=== PATIENT | female | born 1985 | race Two or more races ===

== ENCOUNTER 2016-03-20 07:15 | Emergency (ER) | payer OTHER ==
[~2016-03-20] VITALS: Ht 162.6 cm; Wt 55.3 kg
[2016-03-20] MEDS ORDERED: ONDANSETRON HCL/PF 4 MG/2 ML VIAL ONE (07:36)
[2016-03-20] MEDS ORDERED: IV NS 0.9% 1,000 ML ONE (07:36)
[2016-03-20] MEDS ORDERED: MORPHINE SULFATE INJ 4 MG/ML DISP.SYRIN ONE (07:36)
[2016-03-20 07:59] LABS: BASOPHILS % (AUTO) 0.1 % (0.0-2.0); DIFF TOTAL % 100 %; EOSINOPHILS # (AUTO) 0.2 /CMM (0.0-0.7); EOSINOPHILS % (AUTO) 1.3 % (0.0-6.0); HEMATOCRIT 41 % (33-45); HEMOGLOBIN 14.1 g/dL (11.5-14.8); LYMPHOCYTES # (AUTO) 1.5 /CMM (0.8-4.8); LYMPHOCYTES % (AUTO) 9.4 % (20.0-44.0); MEAN CORPUSCULAR HEMOGLOBIN 32 PG (26.0-33.0); MEAN CORPUSCULAR HGB CONC 34 g/dl (31.0-36.0); MEAN CORPUSCULAR VOLUME 92 fL (82-100); MONOCYTES # (AUTO) 0.8 /CMM (0.1-1.30); MONOCYTES % (AUTO) 5.1 % (2.0-12.0); NEUTROPHILS # (AUTO) 13.3 /CMM (1.8-8.9); NEUTROPHILS % (AUTO) 84.1 % (43.0-81.0); PLATELET COUNT (AUTO) 215 /CMM (150-450); RED BLOOD CELL COUNT(AUTO) 4.46 MIL/uL (4.0-5.2); WHITE BLOOD COUNT (AUTO) 15.9 K/uL (4.3-11.0)
[2016-03-20] MEDS ORDERED: ONDANSETRON HCL/PF 4 MG/2 ML VIAL IVP ONE (08:00)
[2016-03-20] MEDS ORDERED: IV NS 0.9% 1,000 ML BAG IV ONE (08:00)
[2016-03-20] MEDS ORDERED: MORPHINE SULFATE INJ 2 MG/ML DISP.SYRIN IV ONE (08:00)
[2016-03-20 08:05] LABS: ADD UA MICROSCOPIC NO; KETONES,URINE NEGATIVE (NEGATIVE); LEUKOCYTE ESTERASE ,URINE NEGATIVE (NEGATIVE)
[2016-03-20 08:06] LABS: CALCIUM, SERUM 8.5 mg/dL (8.5-10.1); POTASSIUM 4.2 mmol/L (3.5-5.1)
[2016-03-20 08:10] LABS: PREGNANCY TEST URINE QUAL NEGATIVE (NEGATIVE)
[2016-03-20 08:11] LABS: ALBUMIN 3.8 g/dL (3.4-5.0); BILIRUBIN,DIRECT 0.1 mg/dL (0.0-0.2); BILIRUBIN,TOTAL 0.5 mg/dL (0.2-1.0); INDIRECT BILIRUBIN 0.4 mg/dL (0.0-1.1); TOTAL PROTEIN, SERUM 7.5 g/dL (6.4-8.2)
[2016-03-20 09:41] VITALS: BP 118/69
== END 2016-03-20 09:42 | disposition home or self-care (01) ==
LOC: ER 07:17
DX: R52 Pain, unspecified (principal); R10.9 Unspecified abdominal pain; M79.1 Myalgia; J45.909 Unspecified asthma, uncomplicated
CPT/HCPCS: 36415; 74176; 80048; 80076; 81001; 83690; 84703; 85025; 96361; 96374; 96375; 99285; A4606; J2270; J2405; J7030; Z7610; 81000-TC

== ENCOUNTER 2018-06-20 04:21 | Emergency (ER) | payer OTHER ==
[~2018-06-20] VITALS: Ht 160 cm; Wt 58.5 kg
--- NOTE | 2018-06-20 05:02 | NUR ---
PT PRESENTED TO THE ER WITH A C/O SI. PT STATED THAT SHE HAD A IN THE FAMILY AND IS FEELING DEPRESSED. LORRAINE GARZA LCSW IS AT THE BEDSIDE SPEAKING TO THE PT.
[2018-06-20 05:15] LABS: BASOPHILS % (AUTO) 1.2 % (0.0-2.0); EOSINOPHILS % (AUTO) 2.4 % (0.0-6.0); HEMATOCRIT 43 % (33-45); HEMOGLOBIN 15.2 g/dL (11.5-14.8); MEAN CORPUSCULAR HGB CONC 35 g/dl (31.0-36.0); MEAN CORPUSCULAR VOLUME 94 fL (82-100); MONOCYTES % (AUTO) 4.9 % (2.0-12.0); NEUTROPHILS % (AUTO) 48.5 % (43.0-81.0); PLATELET COUNT (AUTO) 283 /CMM (150-450); RED BLOOD CELL COUNT(AUTO) 4.62 MIL/uL (4.0-5.2); WHITE BLOOD COUNT (AUTO) 9.9 K/uL (4.3-11.0)
[2018-06-20 05:16] LABS: BASOPHILS # (AUTO) 0.1 /CMM (0.0-0.2); LYMPHOCYTES # (AUTO) 4.3 /CMM (0.8-4.8); MONOCYTES # (AUTO) 0.5 /CMM (0.1-1.30); NEUTROPHILS # (AUTO) 4.8 /CMM (1.8-8.9)
[2018-06-20 05:23] LABS: APPEARANCE,URINE Clear (CLEAR); BILIRUBIN,URINE Negative (NEGATIVE); BLOOD, URINE Negative Ery/uL (NEGATIVE); COLOR,URINE Yellow (YELLOW); KETONES,URINE 15 (NEGATIVE); LEUKOCYTE ESTERASE ,URINE Negative (NEGATIVE); NITRITE, URINE Negative (NEGATIVE); PH,URINE 5.5 (5.0-8.0); PROTEIN,URINE Trace mg/dl (NEGATIVE); UGLUCOSE Negative (NEGATIVE); UROBILINOGEN,URINE 0.2 EU/dL (0.2)
[2018-06-20 05:24] LABS: CALCIUM, SERUM 8.3 mg/dL (8.5-10.1); CREATININE 0.8 mg/dL (0.6-1.3); POTASSIUM 4.6 mmol/L (3.5-5.1)
[2018-06-20 05:29] LABS: ALBUMIN 4.3 g/dL (3.4-5.0); BILIRUBIN,TOTAL 0.2 mg/dL (0.2-1.0); TOTAL PROTEIN, SERUM 8.3 g/dL (6.4-8.2)
[2018-06-20 05:30] LABS: SALICYLATE 1.5 mg/dL (2.8-20.0)
--- NOTE | 2018-06-20 05:56 | NUR ---
PT'S ALCOHOL LEVEL IS 216. PT DENIES SI WITH LORRAINE GARZA, DEAF AND HARD OF HEARING TEACHER. PT REC'D REFERRALS TO PSYCH [facility] ALCOHOL SERVICES TO F/U WITH AFTER D/C.
[2018-06-20 06:14] LABS: BACTERIA,URINE Few /HPF (None Seen); RBC,URINE 0-2 /HPF (0-2); SQUAMOUS EPITHELIAL CELL,UR Few /HPF (None Seen); URIC ACID CRYSTALS,URINE Moderate /HPF (None Seen); WBC,URINE 0-2 /HPF (0-3)
--- NOTE | 2018-06-20 06:24 | NUR ---
Pt appears to be resting comfortably with no s/s of pain or distress.
--- NOTE | 2018-06-20 07:03 | NUR ---
Pt ambulated to the doorway of ER 4 with a steady gait and asked for juice and water. Pt is tolerating PO well.
--- NOTE | 2018-06-20 07:27 | NUR ---
REPORT GIVEN TO JULIANNA POTTS FOR KRISTIE.
--- NOTE | 2018-06-20 07:32 | NUR ---
PT STATED THAT SHE WAS FEELING ANXIOUS AND WAS WONDERING IF THE DR COULD GIVE HER SOMETHING FOR ANXIETY. DELROY LEVINE, WAS NOTIFIED.
[2018-06-20] MEDS ORDERED: LORAZEPAM 0.5 MG TABLET ONE (07:56)
[2018-06-20] MEDS ORDERED: LORAZEPAM 1 MG TABLET PO ONE (08:00)
[2018-06-20 11:10] VITALS: BP 132/81
--- NOTE | 2018-06-20 11:10 | NUR ---
Patient discharged to home in stable condition. Written and verbal after care instructions given. Patient verbalizes understanding of instruction. patient is going to her PMD after discharge. In no apparent distress noted.
== END 2018-06-20 11:10 | disposition home or self-care (01) ==
LOC: ER 04:25
DX: F32.9 Major depressive disorder, single episode, unspecified (principal); T51.91XA Toxic effect of unspecified alcohol, accidental (unintentional), initial encounter; J45.909 Unspecified asthma, uncomplicated; Y90.7 Blood alcohol level of 200-239 mg/100 ml; Y92.89 Other specified places as the place of occurrence of the external cause
CPT/HCPCS: 36415; 80048; 80076; 80305; 80307; 80329; 81001; 84703; 85025; 99284; G0480; 81000-TC

== ENCOUNTER 2018-07-28 08:03 | Emergency (ER) | payer OTHER ==
[~2018-07-28] VITALS: Ht 160 cm; Wt 55.3 kg
--- NOTE | 2018-07-28 08:13 | NUR ---
PT BIB SELF C/O palpitations and shaking after she had too much champagne last night, PT IS AAOX4, NOT IN RESPIRATORY DISTRESS, V/S STABLE, KEPT RESTED AND COMFORTABLE, WILL CONTINUE TO MONITOR.
--- NOTE | 2018-07-28 08:14 | NUR ---
DR. MAGUIRE AT BEDSIDE FOR EVAL.
[2018-07-28] MEDS ORDERED: METOPROLOL TARTRATE 25 MG TABLET ONE (08:22)
--- NOTE | 2018-07-28 08:25 | NUR ---
IV LINE ESTABLISHED, BLOOD DRAWNED AND SENT TO LAB.
[2018-07-28 08:29] LABS: BASOPHILS # (AUTO) 0.1 /CMM (0.0-0.2); EOSINOPHILS % (AUTO) 1.5 % (0.0-6.0); HEMATOCRIT 41 % (33-45); HEMOGLOBIN 14.3 g/dL (11.5-14.8); LYMPHOCYTES # (AUTO) 4.1 /CMM (0.8-4.8); LYMPHOCYTES % (AUTO) 37.4 % (20.0-44.0); MEAN CORPUSCULAR HGB CONC 35 g/dl (31.0-36.0); MEAN CORPUSCULAR VOLUME 93 fL (82-100); MONOCYTES # (AUTO) 0.8 /CMM (0.1-1.30); MONOCYTES % (AUTO) 7.4 % (2.0-12.0); NEUTROPHILS # (AUTO) 5.8 /CMM (1.8-8.9); NEUTROPHILS % (AUTO) 52.7 % (43.0-81.0); PLATELET COUNT (AUTO) 284 /CMM (150-450); RED BLOOD CELL COUNT(AUTO) 4.45 MIL/uL (4.0-5.2); WHITE BLOOD COUNT (AUTO) 10.9 K/uL (4.3-11.0)
[2018-07-28] MEDS ORDERED: METOPROLOL TARTRATE 25 MG TABLET PO ONE ×2 (08:30→09:00)
[2018-07-28] MEDS ORDERED: IV NS 0.9% 1,000 ML BAG IV ONE (08:30)
--- NOTE | 2018-07-28 08:30 | NUR ---
WOOD DOWEL MACHINE OPERATOR AT BEDSIDE FOR XRAY.
[2018-07-28 08:36] LABS: CALCIUM, SERUM 8.8 mg/dL (8.5-10.1); CARBON DIOXIDE 24 mmol/L (21-32); CHLORIDE 105 mmol/L (98-107); CREATININE 0.8 mg/dL (0.6-1.3); GLUCOSE 96 mg/dL (74-106); POTASSIUM 3.6 mmol/L (3.5-5.1); SODIUM SERUM 139 mmol/L (136-145); UREA NITROGEN, BLOOD 15 mg/dL (7-18)
[2018-07-28] MEDS ORDERED: LORAZEPAM INJ 2 MG/ML VIAL ONE (08:44)
[2018-07-28] MEDS ORDERED: LORAZEPAM INJ 2 MG/ML VIAL IV ONE (09:00)
--- NOTE | 2018-07-28 09:21 | NUR ---
URINE SPECIMEN COLLECTED AND SENT TO LAB.
[2018-07-28 09:39] VITALS: BP 122/64
--- NOTE | 2018-07-28 09:39 | NUR ---
IV removed. Catheter intact and site benign. Pressure and 4x4 applied to site. No bleeding noted. Patient discharged to home in stable condition. Written and verbal after care instructions given. Patient verbalizes understanding of instruction.
== END 2018-07-28 09:40 | disposition home or self-care (01) ==
LOC: ER 08:03
DX: R00.2 Palpitations (principal); R00.0 Tachycardia, unspecified; J45.909 Unspecified asthma, uncomplicated; F32.9 Major depressive disorder, single episode, unspecified; F10.10 Alcohol abuse, uncomplicated; F17.200 Nicotine dependence, unspecified, uncomplicated; Y90.9 Presence of alcohol in blood, level not specified
CPT/HCPCS: 36415; 71045; 80048; 80305; 84484; 84702; 85025; 93005; 96374; 99284; J2060; J7030

== ENCOUNTER 2019-09-23 03:43 | Emergency (ER) | payer OTHER ==
[~2019-09-23] VITALS: Ht 160 cm; Wt 55.3 kg
--- NOTE | 2019-09-23 04:00 | NUR ---
PT BIBSELF C/O SORE THROAT AND DIFFICULTY SWALLOWING X1 DAY. PT STATES "IT FEELS LIKE MY NECK IS SPASMING". DENIES COUGH/FEVER/SOB. PT AAOX4. RESPIRATIONS EVEN AND UNLABORED. SKIN WARM AND INTACT. NO ACUTE DISTRESS NOTED AT THIS TIME. WILL CONTINUE TO MONITOR
[2019-09-23] MEDS ORDERED: IBUPROFEN SUSP 100 MG/5 ML UDC ONE (04:17)
[2019-09-23] MEDS ORDERED: LIDOCAINE VISCOUS 2% UD 15 ML UDC ONE (04:17)
[2019-09-23] MEDS ORDERED: MAG HYDROX/AL HYDROX/SIMETH 30 ML UDC ONE (04:17)
--- NOTE | 2019-09-23 04:23 | NUR ---
PT UNABLE TO SWALLOW, UNABLE TO TAKE PO MEDS. MD AWARE
[2019-09-23] MEDS: IBUPROFEN 600 MG TABLET PO ONE ×2 (04:25→04:32)
[2019-09-23] MEDS ORDERED: KETOROLAC TROMETHAMINE INJ 30 MG/ML VIAL ONE (04:27)
[2019-09-23] MEDS ORDERED: KETOROLAC TROMETHAMINE INJ 30 MG/ML VIAL IV ONE (04:30)
[2019-09-23] MEDS ORDERED: MAG HYDROX/AL HYDROX/SIMETH 30 ML UDC PO ONE (04:30)
[2019-09-23] MEDS ORDERED: LIDOCAINE VISCOUS 2% UD 15 ML UDC MM ONE (04:30)
--- NOTE | 2019-09-23 04:30 | NUR ---
PT TOLERATED DRINKING MOTRIN. PER MD ORDER, WILL HOLD TORADOL IV
--- NOTE | 2019-09-23 04:48 | NUR ---
WAIVER SIGNED BY PT, PLACED IN CHART
[2019-09-23] MEDS ORDERED: IOHEXOL-300 100 ML VIAL IV ONE (05:06)
[2019-09-23] MEDS ORDERED: IV NS 0.9% 250 ML IV ONE (05:06)
[2019-09-23 05:08] LABS: BASOPHILS # (AUTO) 0.1 /CMM (0.0-0.2); BASOPHILS % (AUTO) 0.6 % (0.0-2.0); EOSINOPHILS % (AUTO) 3.2 % (0.0-6.0); HEMATOCRIT 40 % (33-45); HEMOGLOBIN 13.6 g/dL (11.5-14.8); LYMPHOCYTES # (AUTO) 4.3 /CMM (0.8-4.8); MEAN CORPUSCULAR HGB CONC 34 g/dl (31.0-36.0); MEAN CORPUSCULAR VOLUME 95 fL (82-100); MONOCYTES # (AUTO) 0.7 /CMM (0.1-1.30); MONOCYTES % (AUTO) 7.1 % (2.0-12.0); NEUTROPHILS # (AUTO) 4.4 /CMM (1.8-8.9); NEUTROPHILS % (AUTO) 45.1 % (43.0-81.0); PLATELET COUNT (AUTO) 261 /CMM (150-450); RED BLOOD CELL COUNT(AUTO) 4.27 MIL/uL (4.0-5.2); WHITE BLOOD COUNT (AUTO) 9.9 K/uL (4.3-11.0)
[2019-09-23 05:14] LABS: CALCIUM, SERUM 8.6 mg/dL (8.5-10.1); CREATININE 0.8 mg/dL (0.6-1.3); POTASSIUM 3.3 mmol/L (3.5-5.1)
--- NOTE | 2019-09-23 05:27 | NUR ---
PT STILL C/O PAIN. PER MD ORDER, WILL ADMINISTER TORADOL AT THIS TIME.
--- NOTE | 2019-09-23 05:30 | NUR ---
PT BROUGHT BY RADIOLOGY TO CT
--- NOTE | 2019-09-23 07:48 | NUR ---
Patient discharged to home in stable condition. Written and verbal after care instructions given. Patient verbalizes understanding of instruction. IV removed. Catheter intact and site benign. Pressure and 4x4 applied to site. No bleeding noted.
[2019-09-23 07:49] VITALS: BP 120/74
== END 2019-09-23 07:50 | disposition home or self-care (01) ==
LOC: ER 03:47
DX: S16.1XXA Strain of muscle, fascia and tendon at neck level, initial encounter (principal); J45.909 Unspecified asthma, uncomplicated; F32.9 Major depressive disorder, single episode, unspecified; F17.200 Nicotine dependence, unspecified, uncomplicated; X58.XXXA Exposure to other specified factors, initial encounter; Y93.89 Activity, other specified; Y92.89 Other specified places as the place of occurrence of the external cause; Y99.8 Other external cause status
CPT/HCPCS: 36415; 70491; 80048; 85025; 96374; 99285; J1885; J7050; Q9967